=== PATIENT | female | born 1955 | race Caucasian/White ===

== ENCOUNTER → 2018-08-29 07:21 | Outpatient (CLI) | payer BC, SELFPAY ==
--- NOTE | 2018-08-29 | IMM_PTH ---
PATIENT: PATRIZIA WEBSTER LOC: [facility] U#:[id number] AGE/SX: 69/F ROOM: RE08/29/[address]: Dr. Kyara Estevez MD : 1955 BED: DIS: SPEC #: [id number] RECD: 08/30/18 13:29 STATUS: CANDELARIO REKadeem #: [id number] LARS: 08/29/18 00:[address]: Kyara Estevez DEPT: IMMUNOHISTOCHEMISTRY RECD BY: Prachi Burroughs ENTERED: 08/30/18 13:30 SP TYPE: IMMUNO OTHR DR: Dr. Rg Blandon MD Tissues: Left breast, NOS Procedures: CALPONIN-1 (add) CK8 (add) MACRO (add) P53 (add) Vimentin (add) P40 (add) CK7 (initial) PHYSICIAN & INSTITUTION [place] [address] SPECIMEN INFORMATION: Tissue Source: Left breast Clinical Info: Left upper outer density Specimen Number: [id number] #2 CPT code: 29229, 65864 x6 METHODOLOGY: Deparaffinized sections of prefer/formalin-fixed tissue or PAP/DQ stained slides are incubated with monoclonal/polyclonal antibodies/oligonucleotide probes. Localization is made via biotin free immunoperoxidase method. Appropriate controls are performed and reacted as expected. Results on target cell population are indicated in the following table: RESULTS: ANTIBODY / CLONE RESULT Block 2 CK7 (OV-TL12/30) negative CK8 (36qwvbW00) negative P53 (DO-7) negative P40 (BC28) negative Calponin-1 (DF255K) negative Macro (HAM-56) positive Vimentin (V9) negative These tests were developed and their performance characteristics determined by [facility]. They may not have been cleared or approved by the U.S. Food and Drug Administration. The FDA has determined that such clearance or approval is not necessary. INTERPRETATION: Left breast, stereotactic core biopsy: Reactive and reparative change. No evidence of malignancy. AM:beatriz 09/02/18
--- NOTE | 2018-08-29 08:30 | BRBX_PTH ---
PATIENT: PATRIZIA WEBSTER LOC: [facility] U#:[id number] AGE/SX: 69/F ROOM: RE08/29/[address]: Dr. Kyara Estevez MD : 1955 BED: DIS: SPEC #: [id number] RECD: 08/29/18 09:57 STATUS: CANDELARIO TORSTEN #: [id number] LARS: 08/29/18 08:[address]: Kyara Estevez DEPT: SURGICAL PATHOLOGY RECD BY: Stefan Gerardo ENTERED: 08/29/18 10:50 SP TYPE: BREAST BX OTHR DR: Dr. Rg Blandon MD Tissues: Left breast, NOS Procedures: Surgery Specimen Level IV HEADER OPERATION: Left stereotactic breast biopsy PRE-OP DIAGNOSIS: Left upper outer density TISSUE SUBMITTED: Left core tissue, left breast tissue ISCHEMIC TIME: 1 minute FIXATION TIME: 11 hours MICROSCOPIC DIAGNOSIS Left breast, upper outer region, stereotactic core biopsy: Focal fibrosis, fat necrosis, benign histiocytic proliferation and mild chronic inflammation. No evidence of malignancy. AM:beatriz 08/30/18 COMMENT Immunohistochemistry ([id number]) supports the above diagnosis. Case has been reviewed in consultation with Dr. Salazar who concurs with the above diagnosis. IDC:CLIVE MICROSCOPIC DESCRIPTION Slides are reviewed. GROSS DESCRIPTION Received is one container labeled with the patient's name and not further designated. The specimen consists of multiple elongated fragments of mullins-yellow fibroadipose tissue that in aggregate measure 5 x 3 x 0.6 cm. The entire specimen is submitted in four cassettes. / CLIVE:beatriz 08/29/18 TC:3 CPT: 59627
--- NOTE | 2018-08-29 09:08 | BI_ITS ---
MAMMOGRAPHY - UNILATERAL DIAGNOSTIC: LEFT BREAST REASON FOR EXAM: Female, 62 years old. Abnormal screening mammogram. PERTINENT HISTORY: Non-contributory. TECHNIQUE: Digital unilateral breast evon (3D mammographic acquisition) in the CC and MLO projections. 2-D mediolateral oblique (MLO) and craniocaudad (CC) views of both breasts were obtained. CAD: Full Field Digital Mammography with Computer Added Detection was performed. COMPARISON: Comparison is made with prior examination dated June 29, 2017. FINDINGS: Breast Composition: There are scattered areas of fibroglandular density. There are no dominant masses or suspicious calcifications. There is a stable 4.1 mm well-defined nodule in the upper the lateral aspect of the left breast. This may represent a small lymph node. Correlation with ultrasound is recommended. No other significant abnormalities are identified. There has been no significant change since the prior study. BI/DIAG MAMM W/CAD, UNILAT IMPRESSION: Stable unilateral diagnostic mammogram. Stable 4.1 mm well-defined nodule in the deep upper lateral portion of the left breast as described. Correlation with ultrasound is recommended. ASSESSMENT CATEGORY: BIRADS Category 0: Incomplete. Need additional imaging evaluation. A letter regarding these results will be sent to the patient by the facility within 30 days. Approximately 10% of breast cancers are not detected by mammography. A normal mammogram should not delay biopsy of a clinically suspicious abnormality. Electronically Signed: Chevy Arreguin MD at 9:39 EST Tel [phone], Service support ,
--- NOTE | 2018-09-10 17:37 | PCM.OPRPT ---
Report of Operation Date of Procedure: 08/29/18 Pre-Operative Diagnosis: abnormal left breast mammograms Post-Operative Diagnosis: same Surgery/Procedure Performed:: left stereotactice breast biopsy Description of Surgical Findings:: abnormal nodular lesion seen in upper mid left breast Type of Anesthesia:: Local - 1% xylocaine Specimen's removed: left breast tissue Estimated Blood Loss (mL): < 1 Fluids Replaced: none Description of Procedure: After informed consent was given, the patient was brought into the breast biopsy suite. Appropriate time out protocol was followed. She was then placed in the prone position on the stereotactic biopsy table. The patient?s left breast was then placed within the opening at the head of the table. A travel accommodations rater compression mammogram was then obtained in the CC view. The suspicious radiological lesion was then identified. Stereo pictures of the lesion were then taken for XYZ coordinates. The Mammotome biopsy stylus was then positioned where it would be entering into the patient?s breast. The skin at this site was then cleansed with a surgical skin preparation. The skin and subcutaneous tissues at this site were then infiltrated with 1% xylocaine. A small skin incision was made with an 11 blade scalpel. The biopsy stylus was then positioned into the patient?s breast at the proper coordinates of depth. Using the Mammotome vacuum-assist device, several core samples of breast tissue were obtained. A hemostatic marker clip was then placed into the biopsy cavity and a travel accommodations rater film revealed that it was properly deployed. The patient was then placed in the supine position and pressure was applied to the breast until no active bleeding was noted. Steristrips were applied to reapproximate the skin. A unilateral mammogram in the CC and MLO view were then taken which revealed that the marker clip was in the same area as the previous suspicious lesion. The patient tolerated the procedure well and was discharged from the breast biopsy suite in good condition. - Complications none noted
--- NOTE | 2018-09-10 17:41 | OP.PCM_ITS ---
Report of Operation Date of Procedure: 08/29/18 Pre-Operative Diagnosis: abnormal left breast mammograms Post-Operative Diagnosis: same Surgery/Procedure Performed:: left stereotactice breast biopsy Description of Surgical Findings:: abnormal nodular lesion seen in upper mid left breast Type of Anesthesia:: Local - 1% xylocaine Specimen's removed: left breast tissue Estimated Blood Loss (mL): < 1 Fluids Replaced: none Description of Procedure: After informed consent was given, the patient was brought into the breast biopsy suite. Appropriate time out protocol was followed. She was then placed in the prone position on the stereotactic biopsy table. The patient?s left breast was then placed within the opening at the head of the table. A hand candy cutter compression mammogram was then obtained in the CC view. The suspicious radiological lesion was then identified. Stereo pictures of the lesion were then taken for XYZ coordinates. The Mammotome biopsy stylus was then positioned where it would be entering into the patient?s breast. The skin at this site was then cleansed with a surgical skin preparation. The skin and subcutaneous tissues at this site were then infiltrated with 1% xylocaine. A small skin incision was made with an 11 blade scalpel. The biopsy stylus was then positioned into the patient?s breast at the proper coordinates of depth. Using the Mammotome vacuum-assist device, several core samples of breast tissue were obtained. A hemostatic marker clip was then placed into the biopsy cavity and a hand candy cutter film revealed that it was properly deployed. The patient was then placed in the supine position and pressure was applied to the breast until no active bleeding was noted. Steristrips were applied to reapproximate the skin. A unilateral mammogram in the CC and MLO view were then taken which revealed that the marker clip was in the same area as the previous suspicious lesion. The patient tolerated the procedure well and was discharged from the breast biopsy suite in good condition. - Complications none noted
== END ==
PROVIDERS: Family Provider Internal Medicine; PCP Internal Medicine; Referring Provider Surgery; Visit Provider Surgery
DX: N60.32 Fibrosclerosis of left breast (principal); N64.1 Fat necrosis of breast
CPT/HCPCS: 19081; 77061; 77065; 88305; 88341; 88342; J7050; G0279

== ENCOUNTER 2024-06-26 04:53 | Emergency (ER) | payer OTHER, SELFPAY ==
[2024-06-26 04:54] VITALS: BP 128/43; PULSE 67; RESP 18; TEMP 36.8; O2SAT 95; BMI 20.4
--- NOTE | 2024-06-26 05:02 | RAD_ITS ---
INDICATION: INJURY EXAMINATION/TECHNIQUE: X-RAY - RIGHT XR Foot Min 3 Views COMPARISON: None. FINDINGS: 3 views of the right foot. BONES: Normal anatomic alignment without evidence of fracture or subluxation. No concerning bony lesion or abnormal sclerosis to suggest lesion. JOINTS: No significant degenerative change. SOFT TISSUES: Inferior calcaneal and Achilles enthesophytes. RAD/Foot min 3 Views IMPRESSION: No acute osseous abnormality of the right foot. Electronically Signed: Rahul Myers MD at 6:04 EDT ,
--- NOTE | 2024-06-26 05:10 | EX.ED.DYSGE1 ---
HPI History of Present Illness Chief Complaint: Lower Extremity Injury Informant: patient Narrative Narrative: Patient is a 68-year-old female with past medical history of hypertension hyperlipidemia COPD and qhl-xdriuue-dvrmfhogv diabetes. She states around 7:30 PM on June 25 she was at work and she was carrying a roughly 50 pounds of sheet-metal at approximately a waist level. The metal slipped and fell and landed on her right foot. She was wearing her work shoes at the time. She states that she had pain following the trauma but was able to get a task for the night that allowed her to not be on her feet. She states that when she checked herself this morning there is bruising and swelling and the pain persist with ambulation and there is concern for fracture and therefore she was sent in for evaluation. Patient denies any other injury [facility] Medical History HTN (hypertension) Hypercholesteremia COPD (chronic obstructive pulmonary disease) Diabetes Home Medications ?Medication ?Instructions ?Recorded ?Last Taken ?Type albuterol sulfate 2.5 mg/3 mL 1 inhalation Q6H PRN PRN wheezing 06/26/24 Unknown History (0.083 %) solution for nebulization albuterol sulfate 90 mcg/actuation 2 puff inhalation Q4H PRN PRN 06/26/24 Unknown History aerosol inhaler (Ventolin HFA) wheezing empagliflozin 10 mg tablet 10 mg PO DAILY 06/26/24 Unknown History (Jardiance) ezetimibe 10 mg tablet 10 mg PO DAILY 06/26/24 Unknown History glipizide 2.5 mg tablet, extended 2.5 mg PO DAILY 06/26/24 Unknown History release 24 hr glipizide 5 mg tablet, extended 5 mg PO DAILY 06/26/24 Unknown History release 24 hr metformin 500 mg tablet 1,000 mg PO BID 06/26/24 Unknown History rosuvastatin 40 mg tablet 40 mg PO DAILY 06/26/24 Unknown History sacubitril 24 mg-valsartan 26 mg 1 tab PO BID 06/26/24 Unknown History tablet (Entresto) spironolactone 25 mg tablet 12.5 mg PO DAILY 06/26/24 Unknown History Allergy/AdvReac Type Severity Reaction Status Date / Time etodolac Allergy Intermediate Rash Verified 06/26/24 05:06 naproxen Allergy Intermediate Rash Verified 06/26/24 05:06 pyrilamine Allergy Intermediate Rash Verified 06/26/24 05:06 varenicline Allergy Intermediate Swelling Verified 06/26/24 05:06 adhesive AdvReac Mild Rash Verified 06/26/24 05:06 Social History Smoking Status: Current every day smoker tobacco type: cigarettes ROS ROS ED Constitutional Constitutional ED: Denies chills or fever(s) ENT ENT ED: Denies sore throat Cardiovascular Cardiovascular: Denies chest pain Respiratory/Chest Respiratory/Chest: Denies cough or dyspnea Gastrointestinal Gastrointestinal: Denies abdominal pain, diarrhea, nausea or vomiting Genitourinary Genitourinary ED: Denies dysuria Musculoskeletal Musculoskeletal: Reports other Details: Positive right foot pain Integumentary Reports other Details: Positive soft tissue bruising and swelling to the right foot Neurologic Neurologic: Denies headache(s), paresthesias or weakness Hematologic/Lymphatic Hematologic/Lymphatic: Denies easy bleeding or easy bruising EXAM Physical Exam Const Vital Signs: 06/26/24 04:54 Temperature 98.3 F Temperature Source Oral Pulse Rate 67 Respiratory Rate 18 Blood Pressure 128/43 H Blood Pressure Mean 71 Pulse Ox 95 Oxygen Delivery Method Room Air Positive well nourished and well developed General Appearance ED: well developed; Negative for pallor HEENT HEENT Narrative: Normocephalic atraumatic Eyes PERRL and EOMs intact bilaterally Neck supple Resp normal respiratory effort and clear to auscultation bilaterally Cardio regular rate and regular rhythm Extremity Extremity Narrative: Right lower extremity is neurovascularly intact. Patient has soft tissue swelling with ecchymosis to the dorsal aspect of the right foot near the fourth and fifth MTP region. There is also ecchymosis along the plantar aspect of the proximal fifth phalanx. There is no obvious bony deformity or joint effusion. No ligamentous or tendon injury noted. No subungual hematoma. Remainder of the exam is normal Neuro oriented x3, CN's II-XII intact bilaterally and no sensory deficits noted Sensorium / Orientation: alert Psych mental status grossly normal Skin Skin Narrative: Soft tissue swelling and ecchymosis to the right foot as documented above General Skin Exam: Negative for jaundice or pallor MDM MDM MDM Narrative Medical decision making narrative: Patient arrived to the ER with stable vitals and reported a single crush injury to her right foot. There is ecchymosis and soft tissue swelling and concern for potential fracture versus contusion. By exam there is no subungual hematoma nor other findings suggest ligamentous or tendon injury. Therefore only felt need for an x-ray at this time. X-ray revealed no acute bony abnormality such as fracture or dislocation indicating patient has a hematoma with contusion of the bone. Without ligamentous or tendon injury or neurologic dysfunction there is no need for further workup or consultation with orthopedic/podiatry. Patient will be instructed on symptomatic care and is otherwise safe for discharge History & Record Review Discussion w/independent historian: Patient Radiography Diagnostic Testing: Clinical Impression(s) from Imaging Studies Foot X-Ray 06/26/24 05:02 IMPRESSION: No acute osseous abnormality of the right foot. Electronically Signed: Rahul Myers MD at 6:04 EDT , X-ray of the right foot as interpreted by the emergency medicine physician reveals no acute fracture dislocation or retained foreign body Discharge Plan Triage Chief Complaint: Lower Extremity Injury ED Provider: Curt Morgan Dx/Rx/DC Orders Clinical Impression: Contusion of foot, right, Hematoma of right foot, Hypertension, Non-insulin dependent diabetes mellitus, COPD (chronic obstructive pulmonary disease) Instructions: ED Foot Contusion Prescriptions: No Action metformin 500 mg tablet 1,000 mg PO BID albuterol sulfate 2.5 mg /3 mL (0.083 %) solution for nebulization 1 inhalation Q6H PRN PRN (Reason: wheezing) glipizide 5 mg tablet extended release 24hr 5 mg PO DAILY spironolactone 25 mg tablet 12.5 mg PO DAILY glipizide 2.5 mg tablet extended release 24hr 2.5 mg PO DAILY albuterol sulfate [Ventolin HFA] 90 mcg/actuation HFA aerosol inhaler 2 puff INHALATION Q4H PRN PRN (Reason: wheezing) ezetimibe 10 mg tablet 10 mg PO DAILY rosuvastatin 40 mg tablet 40 mg PO DAILY Jardiance 10 mg tablet 10 mg PO DAILY Entresto 24-26 mg tablet 1 tab PO BID Primary Care Provider: Rg Blandon Referrals: Rg Blandon MD [Primary Care Provider] - Activity Restrictions/Additional Instructions: Please continue with Tylenol and/or Motrin for pain control. Also ice your foot for 10 to 20 minutes 2-3 times a day for the next 3 to 5 days to reduce pain and speed healing. Follow-up with Workmen's Compensation as directed by your HR department and return to the ER should you have any further concerns Print Language: Kyrgyz Disposition Disposition: Home, Self Care
[2024-06-26 06:00] VITALS: BP 130/50; PULSE 65; RESP 18; TEMP 36.6; O2SAT 95
== END 2024-06-26 06:27 | disposition home or self-care (01) ==
PROVIDERS: Emergency Provider Emergency Medicine; PCP Internal Medicine; Visit Provider Emergency Medicine
DX: S90.31XA Contusion of right foot, initial encounter (principal); J44.9 Chronic obstructive pulmonary disease, unspecified; E11.9 Type 2 diabetes mellitus without complications; S97.81XA Crushing injury of right foot, initial encounter; W20.8XXA Other cause of strike by thrown, projected or falling object, initial encounter; Y99.0 Civilian activity done for income or pay; I10 Essential (primary) hypertension; E78.00 Pure hypercholesterolemia, unspecified; F17.210 Nicotine dependence, cigarettes, uncomplicated; Z79.82 Long term (current) use of aspirin; Z79.84 Long term (current) use of oral hypoglycemic drugs; Z79.899 Other long term (current) drug therapy
CPT/HCPCS: 73630; 99282

== ENCOUNTER 2024-11-18 01:16 | Emergency (ER) | payer OTHER, SELFPAY ==
[2024-11-18 01:17] VITALS: BP 126/44; PULSE 77; RESP 18; TEMP 36.9; O2SAT 99; BMI 20.2
--- NOTE | 2024-11-18 01:30 | EDS_ITS ---
HPI History of Present Illness Chief Complaint: Lower Extremity Injury Informant: patient Narrative Narrative: Right foot injury at work. She wears steel toe shoes a stack of sheet-metal fell down top of her foot. Pain to foot. Similar symptoms a year ago with injury. No other injuries. No anticoagulation medicines. Allergies to NSAIDs states can be Tylenol. Prior similar symptoms: Yes PFSH [facility] Medical History HTN (hypertension) Hypercholesteremia COPD (chronic obstructive pulmonary disease) Diabetes Home Medications ?Medication ?Instructions ?Recorded ?Last Taken ?Type albuterol sulfate 2.5 mg/3 mL 1 inhalation Q6H PRN PRN wheezing 06/26/24 Unknown History (0.083 %) solution for nebulization albuterol sulfate 90 mcg/actuation 2 puff inhalation Q 4H PRN PRN 06/26/24 Unknown History aerosol inhaler (Ventolin HFA) wheezing empagliflozin 10 mg tablet 10 mg PO DAILY 06/26/24 Unk nown History (Jardiance) ezetimibe 10 mg tablet 10 mg PO DAILY 06/26/24 Unkn own History glipizide 2.5 mg tablet, extended 2.5 mg PO DAILY 12/15 Unknown History release 24 hr glipizide 5 mg tablet, extended 5 mg PO DAILY 06/26/24 Unknown History release 24 hr metformin 500 mg tablet 1,000 mg PO BID 06/26/24 Unk nown History rosuvastatin 40 mg tablet 40 mg PO DAILY 06/26/24 Unkn own History sacubitril 24 mg-valsartan 26 mg 1 tab PO BID 06/26/24 Unknown History tablet (Entresto) spironolactone 25 mg tablet 12.5 mg PO DAILY 06/26/24 Unknown History aspirin 81 mg tablet,delayed 81 mg PO QDAY 06/30/24 Un known History release (Adult Low Dose Aspirin) Allergy/AdvReac Type Severity Reaction Status Date / Time etodolac Allergy Intermediate Rash Verified 11/18/24 01:23 naproxen Allergy Intermediate Rash Verified 11/18/24 01:23 pyrilamine Allergy Intermediate Rash Verified 11/18/24 01:23 varenicline Allergy Intermediate Swelling Verified 11/18/24 01:23 adhesive AdvReac Mild Rash Verified 02/25/25 01:23 Social History Smoking Status: Current every day smoker tobacco type: cigarettes ROS ROS ED Constitutional Constitutional ED: Denies fever(s) Gastrointestinal Gastrointestinal: Denies nausea or vomiting Musculoskeletal Musculoskeletal: Reports extremity pain Integumentary Reports wounds; Denies rash Neurologic Neurologic: Denies paresthesias EXAM Physical Exam Const Vital Signs: 11/18/24 01:17 Temperature 98.4 F Temperature Source Oral Pulse Rate 77 Respiratory Rate 18 Blood Pressure 126/44 H Blood Pressure Mean 71 Pulse Ox 99 Oxygen Delivery Method Room Air Positive well nourished and well developed Constitutional Narrative: GCS 15 General Appearance ED: well developed and NAD HEENT Reports moist mucous membranes normocephalic and atraumatic Eyes General Eye ED: Yes normal appearance of both eyes Neck full ROM Chest Wall Chest: Negative for tenderness Resp normal respiratory effort and normal air movement Effort and Inspection: symmetric chest movement; Negative for respiratory distre ss Cardio regular rate, regular rhythm and no murmurs Peripheral Pulses: pulses 2+ throughout GI normal to inspection, nondistended, normoactive bowel sounds and non-tender Palpation: Negative for guarding or rebound tenderness present Extremity normal to inspection Extremity Narrative: Right lower extremity: No ankle injury. Foot examination there is ecchymosis dorsal aspect distal first and second metatarsal there was abrasion of skin distal first metatarsal with no active bleeding or laceration. No injuries of the toes. General Extremety ED: Yes tenderness; Negative for edema General Extremity: Negative for edema Neuro oriented x3 and no sensory deficits noted Sensorium / Orientation: awake and alert Skin no rashes or lesions noted and no wounds MDM MDM MDM Narrative Medical decision making narrative: Interventions / MDM: Differential diagnosis: Right foot contusion, right foot abrasion Diagnosis considered but do not suspect: Fracture however x-ray negative. No clinical fracture of the fifth toe. My EKG interpretation: N/A Imaging independently reviewed and interpreted by myself: Right foot x-ray 3 views: Questional fracture per radiology fifth toe. No fractures noted metatarsals. External documents reviewed: N/A Test considered but not ordered:N/A ED course: Patient foot contusion with abrasion. Tylenol ordered. Will check foot x-ray. X-ray interpreted myself no acute fractures. Questionable fracture of fifth toe per radiology. Clinically injury was over the first and second metatarsals. No toe injuries or pain. She is placed in a postop shoe. Appropriate work restrictions were given. She will continue Tylenol. Re-evaluation: stable Disposition discussed with patient/family/significant other: Patient Case discussed with consulting clinician: N/A This note was generated with [employer] dictation software. It may contain incorrect words, spelling, and punctuation that were not noted in checking the note before signing. Radiography Diagnostic Testing: Clinical Impression(s) from Imaging Studies Foot X-Ray 11/18/24 01:50 IMPRESSION: Incidental developmental osseous fusion of the middle and distal phalanx of the 5th ray is again noted although now there is appearance of an obliquely oriented lucency now seen on the oblique view concerning for acute fracture plane, clinically correlate. Reading Location: [facility] Discharge Plan Triage Chief Complaint: Lower Extremity Injury ED Provider: Kai Perdue Dx/Rx/DC Orders Clinical Impression: Contusion of foot, right, Abrasion of foot, right Instructions: ED Abrasion, ED Foot Contusion Prescriptions: No Action aspirin [Adult Low Dose Aspirin] 81 mg tablet,delayed release (DR/EC) 81 mg PO QDAY metformin 500 mg tablet 1,000 mg PO BID albuterol sulfate 2.5 mg /3 mL (0.083 %) solution for nebulization 1 inhalation Q6H PRN PRN (Reason: wheezing) glipizide 5 mg tablet extended release 24hr 5 mg PO DAILY spironolactone 25 mg tablet 12.5 mg PO DAILY glipizide 2.5 mg tablet extended release 24hr 2.5 mg PO DAILY albuterol sulfate [Ventolin HFA] 90 mcg/actuation HFA aerosol inhaler 2 puff INHALATION Q4H PRN PRN (Reason: wheezing) ezetimibe 10 mg tablet 10 mg PO DAILY rosuvastatin 40 mg tablet 40 mg PO DAILY Jardiance 10 mg tablet 10 mg PO DAILY Entresto 24-26 mg tablet 1 tab PO BID Primary Care Provider: Rg Blandon Referrals: Rg Blandon MD [Primary Care Provider] - Activity Restrictions/Additional Instructions: X-ray negative. Continue Tylenol postop shoe for comfort. Work restrictions as given. Follow-up with your occupational health facility. Print Language: Amharic Disposition Disposition: Home, Self Care Discharge Date/Time: 11/18/24 02:13
--- NOTE | 2024-11-18 01:50 | RAD_ITS ---
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 Otherwise no other osseous finding concerning for fracture identified. Dorsal forefoot soft tissue swelling. No dislocation. Small enthesophyte formation again noted at the plantar and Achilles surfaces of the calcaneus. 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 Reading Location: [id number]
[2024-11-18] MEDS: Acetaminophen 500 MG Tablet 1000 MG PO (01:57)
== END 2024-11-18 02:13 | disposition home or self-care (01) ==
PROVIDERS: Emergency Provider Emergency Medicine; PCP Internal Medicine; Visit Provider Emergency Medicine
DX: S90.31XA Contusion of right foot, initial encounter (principal); J44.9 Chronic obstructive pulmonary disease, unspecified; E11.9 Type 2 diabetes mellitus without complications; W20.8XXA Other cause of strike by thrown, projected or falling object, initial encounter; Y99.0 Civilian activity done for income or pay; I10 Essential (primary) hypertension; E78.00 Pure hypercholesterolemia, unspecified; F17.210 Nicotine dependence, cigarettes, uncomplicated; Z79.82 Long term (current) use of aspirin; Z79.84 Long term (current) use of oral hypoglycemic drugs; Z79.899 Other long term (current) drug therapy
CPT/HCPCS: 73630; 99283